=== PATIENT | female | born 1970 | race Two or more races ===

== ENCOUNTER 2019-12-28 16:23 | Emergency (ER) | payer BC, OTHER ==
[~2019-12-28] VITALS: Ht 154.9 cm; Wt 78.9 kg
[2019-12-28 19:41] VITALS: BP 151/85
== END 2019-12-28 21:47 | disposition home or self-care (01) ==
LOC: ER 16:23
DX: R55 Syncope and collapse (principal)

== ENCOUNTER 2024-01-12 13:22 | Emergency (ER) | payer BC ==
[~2024-01-12] VITALS: Ht 165.1 cm; Wt 77.7 kg
[2024-01-12 13:52] VITALS: TEMP 98
[2024-01-12 14:17] VITALS: PULSE 89; RESP 18; O2SAT 100
[2024-01-12] MEDS: ACETAMINOPHEN 500 MG TAB PO ONE (14:51)
[2024-01-12 14:52] LABS: Basophils # (auto) 0 10 ^3/uL (0-0.2); Basophils % (auto) 0.3 % (0.0-2.0); Eosinophils # (auto) 0.1 10 ^3/uL (0-0.8); Eosinophils % (auto) 0.8 % (0.0-7.0); Hemoglobin 13.1 g/dL (12.2-16.2); Lymphocytes % (auto) 28.5 % (10.0-50.0); Mean Corpuscular Hemoglobin 28.6 pg (28.0-32.0); Mean Corpuscular Hgb Conc. 33.6 g/dL (32.0-36.0); Mean Corpuscular Volume 85.4 fL (80.0-100.0); Monocytes # (auto) 0.5 10 ^3/uL (0-1.3); Monocytes % (auto) 7.2 % (0.0-12.0); Neutrophils # (auto) 4.4 10 ^3/uL (1.6-8.6); Neutrophils % (auto) 63.2 % (37.0-80.0); Nucleated Red Blood Cells % 0.1 %; Platelet Count (auto) 239 10^3/uL (140-450); Red Blood Cells 4.57 10^6/uL (4.0-5.20); Red Cell Distribution Width 14.5 % (11.8-14.3); White Blood Cell 6.9 10^3/uL (4.4-10.8)
[2024-01-12 14:56] LABS: Urine Bacteria None Seen /hpf (None Seen)
[2024-01-12 15:01] LABS: Chloride 108 mmol/L (98-107); Potassium 3.7 mmol/L (3.5-5.1); Sodium 143 mmol/L (136-145)
[2024-01-12 15:02] LABS: Anion Gap 10 (5-15); Carbon Dioxide 25 mmol/L (20-30)
[2024-01-12 15:03] LABS: Calcium 9.6 mg/dL (8.7-10.4)
[2024-01-12 15:07] LABS: Glucose 100 mg/dL (74-106)
[2024-01-12 15:08] LABS: BUN/Creatinine Ratio 13.3 (10.0-20.0); Blood Urea Nitrogen 10 mg/dL (9-23)
[2024-01-12 15:11] LABS: Urine Blood Negative /uL (Negative); Urine Clarity Clear (Clear); Urine Color Light-Yellow (Yellow); Urine Mucus FEW (None Seen); Urine Protein, UAD Negative (Negative); Urine Specific Gravity 1.015 (1.001-1.035); Urine Urobilinogen Normal (Negative); Urine WBC <1 /hpf (0 - 5)
[2024-01-12] MEDS ORDERED: LISI20TA56 PO (15:20)
[2024-01-12 15:25] VITALS: BP 156/100
[2024-01-12] MEDS: LISINOPRIL 20 MG TAB PO ONE (15:33)
== END 2024-01-12 15:37 | disposition home or self-care (01) ==
LOC: ER 13:22
DX: G44.209 Tension-type headache, unspecified, not intractable (principal); I10 Essential (primary) hypertension
CPT/HCPCS: 36415; 70450; 80048; 81001; 85025; 93005